=== PATIENT | female | born 1975 | race Caucasian/White ===

== ENCOUNTER 2021-07-05 14:56 | Outpatient (REF) | payer OTHER, SELFPAY ==
--- NOTE | ~2021-07-05 | CT_ITS ---
EXAMINATION: CT ABDOMEN AND PELVIS WITHOUT CONTRAST CLINICAL INFORMATION: Change in bowel habits COMPARISON: None TECHNIQUE: Multidetector volumetric imaging was performed from the superior aspect of the liver through the pubic symphysis. Sagittal and coronal reformatted images were obtained on the technologist's workstation. This CT examination was performed using dose optimization techniques as appropriate, variously including the following: *Automated exposure control *Adjustment of mA and/or kV according to patient size (this includes techniques or standardized protocols for targeted exams where dose is matched to indication/reason for exam; i.e. extremities or head) *Use of iterative reconstruction technique DLP: 385 mGy-cm FINDINGS: LUNG BASES: The visualized lung bases are unremarkable. LIVER, GALLBLADDER, AND BILIARY TREE: The liver is normal in size, shape, and attenuation. No focal hepatic lesion or biliary ductal dilatation is present. The gallbladder is unremarkable with no evidence of radiopaque gallstones, gallbladder wall thickening, or obvious pericholecystic inflammatory changes. PANCREAS: Unremarkable. SPLEEN: Unremarkable. ADRENAL GLANDS: The left adrenal gland is slightly plump and appears nodular with a nodule measuring approximately 1.3 cm. The right adrenal gland is unremarkable. KIDNEYS AND URETERS: The kidneys are normal in size, shape, and attenuation. No hydronephrosis, hydroureter, or calculi seen. No perinephric stranding. BLADDER: Unremarkable. GASTROINTESTINAL TRACT: There is scattered stool and gas seen throughout the colon, most prominent in the right colon without distention. Oral contrast opacified small bowel loops are normal caliber. ABDOMINAL WALL: No significant hernia is appreciated. LYMPH NODES: Normal. VASCULAR: Unremarkable. PELVIC VISCERA: There is a hypodense round lesion in the left ovary measuring 3.6 cm suggestive of a small ovarian complex cyst with measuring 20 Hounsfield units. OSSEOUS STRUCTURES: There is mild loss of L2-L3 disc height with mild ventral spondylosis. No lytic or sclerotic process seen. CT/CT abdomen pelvis wo con IMPRESSION: 1. Mild constipation without obstruction. 2. 3.6 cm left ovarian cyst.
[2021-07-05] MEDS: Barium Sulfate Oral (Vanilla) 450 ML ORAL.SUSP 900 ML PO (17:12)
== END 2021-07-05 14:57 | disposition home or self-care (01) ==
LOC: HO.CT 14:56
PROVIDERS: Visit Provider Nurse Practitioner
DX: R94.4 Abnormal results of kidney function studies (principal); R10.31 Right lower quadrant pain
CPT/HCPCS: 74176